=== PATIENT | male | born 1980 | race Caucasian/White ===

== ENCOUNTER 2018-03-29 22:59 | Emergency (ER) | payer MEDICAID ==
[~2018-03-29] VITALS: Ht 185.4 cm; Wt 95.3 kg
[2018-03-29 23:20] VITALS: BP 128/77
--- NOTE | 2018-03-29 23:38 | Emergency Room Report ---
History of Present Illness General Chief Complaint: Abdominal Pain Source: Patient Present Illness [facility] This is a 38-year-old male with a history of diverticulitis. He presents with left lower quadrant pain. Onset for last 3 days. Pain is 9 out of 10 patient sharp in nature. No nausea no vomiting. No diarrhea. Similar symptoms in the past. Subjective fever last night. Last radiculitis was 9 months ago. Denies any other complaint. Allergies: Coded Allergies: IBUPROFEN (Verified Allergy, Unknown, 03/29/18) IODINE (Verified Allergy, Unknown, 03/29/18) METOCLOPRAMIDE (Verified Allergy, Unknown, 03/29/18) PROCHLORPERAZINE (Verified Allergy, Unknown, 03/29/18) Patient History Past Medical History: see triage record, old chart reviewed Past Surgical History: other Pertinent Family History: none Social History: Denies: smoking Immunizations: other Reviewed Nursing Documentation: PMH: Agreed; PSxH: Agreed Nursing Documentation-PMH Past Medical History: No History, Except For Hx Gastrointestinal Problems: Yes - diverticulitis, kidney stones Review of Systems Eye: Denies: eye pain, blurred vision ENT: Denies: ear pain, nose congestion, throat swelling Respiratory: Reports: cough; Denies: shortness of breath Cardiovascular: Denies: chest pain, palpitations Gastrointestinal: Reports: abdominal pain; Denies: diarrhea, nausea, vomiting Musculoskeletal: Denies: back pain, joint pain Skin: Denies: rash Neurological: Denies: headache, numbness Endocrine: Denies: increased thirst, increased urine Hematologic/Lymphatic: Denies: easy bruising All Other Systems: negative except mentioned in HPI Physical Exam Vital Signs Date Time Temp Pulse Resp B/P (MAP) Pulse Ox O2 Delivery O2 Flow Rate FiO2 03/29/18 23:04 98.1 95 16 135/90 95 Room Air vitals unremarkable Sp02 EP Interpretation: reviewed, normal General Appearance: well appearing, no apparent distress, alert Head: normocephalic, atraumatic Eyes: bilateral eye PERRL, bilateral eye EOMI ENT: hearing grossly normal, normal pharynx Neck: full range of motion, supple, no meningismus Respiratory: chest non-tender, lungs clear, normal breath sounds Cardiovascular #1: regular rate, rhythm, no murmur Gastrointestinal: normal bowel sounds, no mass, no organomegaly, no bruit, non- distended, tenderness - Left lower quadrant Musculoskeletal: back normal, gait/station normal, normal range of motion Psychiatric: mood/affect normal Skin: warm/dry Medical Decision Making Diagnostic Impression: Primary Impression: Abdominal pain Qualified Codes: R10.32 - Left lower quadrant pain Additional Impression: Community acquired pneumonia Qualified Codes: J18.1 - Lobar pneumonia, unspecified organism ER Course This patient presents with left lower quadrant abdominal pain. Labs unremarkable. CT negative for inflammation or diverticulitis. He does have a cough the last [address] scan showed a possible right middle lobe infiltrate. We'll discharge home with antibiotics. No evidence of an acute abdomen. No evidence of any obstruction. Lab Results Impression labs unremarkable Last Vital Signs Date Time Temp Pulse Resp B/P (MAP) Pulse Ox O2 Delivery O2 Flow Rate FiO2 03/29/18 23:20 86 16 Room Air 03/29/18 23:20 98.1 128/77 98 Status: improved Disposition: HOME, SELF-CARE Condition: Stable Scripts Levofloxacin* (LEVAQUIN*) 500 Mg Tablet 500 MG ORAL DAILY, #7 TAB Prov: Elias Carlin MD 03/30/18 Hydrocodone/Acetaminophen 5-325* (HYDROCODONE/ACETAMINOPHEN 5-325*) 1 Each Tablet 1 TAB ORAL Q6H PRN for For Pain, #10 TAB 0 Refills Prov: Elias Carlin MD 03/30/18 Referrals: NOT CHOSEN [facility]/,REFERRING (PCP) Patient Instructions: Abdominal Pain, Adult Additional Instructions: Follow-up with your doctor in 7 days. Return if symptom worsen. Elias Carlin MD Mar 29, 2018 23:38
[2018-03-29] MEDS ORDERED: Morphine Sulfate 4mg/ml Inj (IV/IM USE ONLY) IVP ONE (23:45)
[2018-03-30 00:15] LABS: APPEARANCE,URINE CLEAR; BILIRUBIN, URINE NEGATIVE (NEGATIVE); COLOR,URINE PALE YELLOW; GLUCOSE, URINE (UA) NEGATIVE (NEGATIVE); KETONES,URINE NEGATIVE (NEGATIVE); LEUKOCYTE ESTERASE ,URINE NEGATIVE (NEGATIVE); NITRITE,URINE NEGATIVE (NEGATIVE); PH,URINE 7 (4.5-8.0); PROTEIN,URINE NEGATIVE (NEGATIVE); UROBILINOGEN,URINE NORMAL MG/DL (0.0-1.0)
[2018-03-30 00:19] LABS: ANION GAP 9 mmol/L (5-15); BLOOD UREA NITROGEN 20 mg/dL (7-18); CARBON DIOXIDE 26 MMOL/L (21-32); CHLORIDE 103 MMOL/L (98-107); CREATININE 1.3 MG/DL (0.55-1.30); POTASSIUM 4.1 MMOL/L (3.5-5.1); SODIUM 138 MMOL/L (136-145)
[2018-03-30 00:23] LABS: ALANINE AMINOTRANSFERASE 31 U/L (12-78); ALBUMIN 3.7 G/DL (3.4-5.0); ALBUMIN/GLOBULIN RATIO 0.8 (1.0-2.7); ALKALINE PHOSPHATASE 98 U/L (46-116); ASPARTATE AMINO TRANSFERASE 20 U/L (15-37); BASOPHILS % (AUTO) 0.9 % (0.0-2.0); BILIRUBIN,TOTAL 0.4 MG/DL (0.2-1.0); EOSINOPHILS % (AUTO) 4.2 % (0.0-3.0); HEMATOCRIT 43.7 % (42.0-52.0); HEMOGLOBIN 14.8 G/DL (14.2-18.0); LYMPHOCYTES % (AUTO) 22.9 % (20.0-45.0); MEAN CORPUSCULAR VOLUME 82 FL (80-99); MONOCYTES % (AUTO) 7.5 % (1.0-10.0); NEUTROPHILS % (AUTO) 64.5 % (45.0-75.0); PLATELET COUNT 225 K/UL (150-450); RED BLOOD COUNT 5.33 M/UL (4.70-6.10); RED CELL DISTRIBUTION WIDTH 11.3 % (11.6-14.8); WHITE BLOOD COUNT 8.2 K/UL (4.8-10.8)
[2018-03-30] MEDS ORDERED: Morphine Sulfate 4mg/ml Inj (IV/IM USE ONLY) IVP ONE (00:30)
[2018-03-30] MEDS ORDERED: LEVAQUIN500 MG ORAL (00:58)
[2018-03-30] MEDS ORDERED: HYDROCODON-ACE1 EA15 ORAL (00:58)
[2018-03-30 01:05] VITALS: BP 128/77
--- NOTE | 2018-03-30 10:53 | Diagnostic Imaging Report ---
Indication: Abdominal pain for 3 days Technique: Spiral acquisitions obtained through the abdomen and pelvis. No oral contrast utilized, per emergency room physician request No IV contrast utilized, per referring physician request.. Multiplanar reconstructions were generated. Total dose length product 633.78 mGycm. CTDIvol(s) 11.8 mGy. Dose reduction achieved using automated exposure control Comparison: None Findings: The appendix is normal no evidence of diverticulosis or diverticulitis. No small bowel distention. No free or loculated intraperitoneal gas or fluid. Distal esophagus, stomach, duodenum are unremarkable. Lack of IV contrast limits assessment of the solid organs. The liver, gallbladder, bile ducts, pancreas, spleen, adrenals, kidneys are unremarkable. No retroperitoneal or mesenteric mass or adenopathy. No pelvic mass or adenopathy. The prostate is prominent for age The included lung bases are clear except for minimal scarring or atelectasis in the right middle lobe. The bones are unremarkable Impression: Somewhat prominent prostate, for age. Minimal right middle lobe atelectasis Otherwise unremarkable This agrees with the preliminary interpretation provided overnight by [facility].. The CT scanner at [facility] is accredited by the [employer] and the scans are performed using protocols designed to limit radiation exposure to as low as reasonably achievable to attain images of sufficient resolution adequate for diagnostic evaluation.
[2018-03-30] MEDS ORDERED: NKM (14:24)
== END 2018-03-30 01:05 | disposition home or self-care (01) ==
LOC: EMR 23:32
DX: R10.32 Left lower quadrant pain (principal); J18.9 Pneumonia, unspecified organism; Z87.19 Personal history of other diseases of the digestive system; Z87.442 Personal history of urinary calculi; Z88.6 Allergy status to analgesic agent
CPT/HCPCS: 36415; 74176; 80053; 80307; 81003; 83690; 85025; 96374; 96375; 96376; 99284; J2270; J2405

== ENCOUNTER 2018-03-30 12:31 | Inpatient (IN) | payer MEDICAID ==
[~2018-03-30] VITALS: Ht 185.4 cm; Wt 99.5 kg
[~2018-03-30 12:31] MED LIST: HYDROCODON-ACE1 EA15 ORAL; LEVAQUIN500 MG ORAL
[2018-03-30 12:45] VITALS: BP 118/74
[2018-03-30] MEDS ORDERED: Morphine Sulfate 4mg/ml Inj (IV/IM USE ONLY) IVP ONE (13:15)
[2018-03-30] MEDS ORDERED: NKM (14:24)
[2018-03-30 14:33] LABS: BASOPHILS % (AUTO) 0.6 % (0.0-2.0); EOSINOPHILS % (AUTO) 3.4 % (0.0-3.0); HEMATOCRIT 40.6 % (42.0-52.0); HEMOGLOBIN 13.7 G/DL (14.2-18.0); LYMPHOCYTES % (AUTO) 15.1 % (20.0-45.0); MEAN CORPUSCULAR VOLUME 83 FL (80-99); MONOCYTES % (AUTO) 8.3 % (1.0-10.0); NEUTROPHILS % (AUTO) 72.6 % (45.0-75.0); PLATELET COUNT 210 K/UL (150-450); RED BLOOD COUNT 4.92 M/UL (4.70-6.10); RED CELL DISTRIBUTION WIDTH 11.4 % (11.6-14.8); WHITE BLOOD COUNT 9.3 K/UL (4.8-10.8)
--- NOTE | 2018-03-30 14:38 | Diagnostic Imaging Report ---
Indication: Chest pain Technique: One view of the chest Comparison: none Findings: The lungs and pleural spaces are clear. The left hilum is very prominent. The heart size is normal. Impression: No acute process Prominent left hilum, could be on the basis of prominent vasculature but mass or adenopathy possible. Further evaluation with chest CT should be considered Findings discussed with the emergency room nurse practitioner Becky Montgomery at the time of interpretation
[2018-03-30 14:52] LABS: ANION GAP 8 mmol/L (5-15); BLOOD UREA NITROGEN 19 mg/dL (7-18); CARBON DIOXIDE 25 MMOL/L (21-32); CHLORIDE 104 MMOL/L (98-107); CREATININE 1.1 MG/DL (0.55-1.30); POTASSIUM 3.8 MMOL/L (3.5-5.1); SODIUM 137 MMOL/L (136-145)
[2018-03-30 14:57] LABS: ALANINE AMINOTRANSFERASE 26 U/L (12-78); ALBUMIN 3.4 G/DL (3.4-5.0); ALBUMIN/GLOBULIN RATIO 0.8 (1.0-2.7); ALKALINE PHOSPHATASE 89 U/L (46-116); ASPARTATE AMINO TRANSFERASE 18 U/L (15-37); BILIRUBIN,TOTAL 0.3 MG/DL (0.2-1.0); CREATINE KINASE 130 U/L (26-308)
[2018-03-30] MEDS ORDERED: Morphine Sulfate 2mg/ml Inj IVP ONE (15:15)
[2018-03-30] MEDS ORDERED: LORazepam Inj 2mg/ml 1ml IV ONE (15:15)
[2018-03-30 15:30] VITALS: BP 115/68
--- NOTE | 2018-03-30 16:35 | Diagnostic Imaging Report ---
Clinical Indication: Chest pain, coughing, chills over one week, abnormal recent chest radiograph Technique: Spiral acquisitions obtained through the chest. No IV contrast utilized, reason not stated. Multiplanar reconstructions generated. Total dose length product 776.08 mGycm. CTDIvol(s) 17.67 mGy. Dose reduction achieved using automated exposure control Comparison: none Findings: Lack of IV contrast limits assessment. The lungs demonstrate no definite left hilar mass or adenopathy. Prominent vessels probably account for findings seen on recent chest radiograph. Ill-defined reticular and groundglass opacities in a patchy distribution are seen in the right middle lobe. Questionable 2 mm nodular opacity is seen in the inferior left upper lobe, image 47 of series 5. The left lung is otherwise clear. The right upper and lower lobes are clear. The pleural spaces are clear. No masses are demonstrated. Normal heart size. No pericardial effusion. No mediastinal or hilar mass or adenopathy. Included thyroid is unremarkable. No axillary or supraclavicular mass or adenopathy. Unremarkable esophagus. The included upper abdominal anatomy is unremarkable. Impression: Faint subtle reticular and groundglass opacities in a patchy distribution in the right lung. These are nonspecific. Could represent very early pneumonia, among other possibilities Questionable 2 mm nodular opacity in the inferior left upper lobe. No further follow-up necessary if there is no significant smoking history or other risk factors for lung carcinoma. Recommend 6-[address] if there are significant risk factors No definite left hilar abnormality to correspond to left hilar prominence described on recent chest radiograph; that finding most likely on the basis of prominent vasculature. Note, however, that evaluation is limited in the absence of IV contrast The CT scanner at [facility] is accredited by the [employer] and the scans are performed using protocols designed to limit radiation exposure to as low as reasonably achievable to attain images of sufficient resolution adequate for diagnostic evaluation.
[2018-03-30 18:16] VITALS: BP 110/70
--- NOTE | 2018-03-30 18:33 | Emergency Room Report ---
History of Present Illness General Chief Complaint: Flu Like Symptoms Source: Patient Present Illness HPI 38 Yo male presents to the ED c/o 10 out of 10 in severity chest pain, cough, body aches, fevers and chills times almost one week. Patient reports he was here in the emergency department last night diagnosed with pneumonia and prescribed antibiotics. Patient states that he was unable to obtain antibiotics and he is now feeling much worse. Patient also reports shakiness, feeling as though it is hard to catch his breath and pain taking deep breaths. Reports vomiting, he denies blood in the vomit or stool. Denies black tarry stools. He also reports nasal congestion he denies sore throat or ear pain. Patient reports sinus pressure headache as well denies neck pain or stiffness, or photophobia. Allergies: Coded Allergies: IBUPROFEN (Verified Allergy, Unknown, 03/29/18) IODINE (Verified Allergy, Unknown, 03/29/18) METOCLOPRAMIDE (Verified Allergy, Unknown, 03/29/18) PROCHLORPERAZINE (Verified Allergy, Unknown, 03/29/18) Patient History Past Medical History: see triage record Past Surgical History: none Pertinent Family History: none Reviewed Nursing Documentation: PMH: Agreed; PSxH: Agreed Nursing Documentation-PMH Past Medical History: No History, Except For Hx Gastrointestinal Problems: Yes - diverticulitis, kidney stones Review of Systems All Other Systems: negative except mentioned in HPI Physical Exam Vital Signs Date Time Temp Pulse Resp B/P (MAP) Pulse Ox O2 Delivery O2 Flow Rate FiO2 03/30/18 12:45 98.4 96 18 118/74 96 Room Air Sp02 EP Interpretation: reviewed, normal General Appearance: alert, GCS 15, moderate distress Head: normocephalic, atraumatic Eyes: bilateral eye normal inspection, bilateral eye PERRL, bilateral eye other - no photophobia ENT: hearing grossly normal, normal voice, uvula midline, moist mucus membranes , nasal congestion, pharyngeal erythema, other - no tonsillar swelling or exudates Neck: full range of motion, no meningismus, no bony tend Respiratory: chest non-tender, lungs clear, normal breath sounds, no respiratory distress, speaking full sentences, wheezing Cardiovascular #1: regular rate, rhythm Gastrointestinal: non tender, soft Musculoskeletal: back normal, gait/station normal, normal range of motion, non- tender Neurologic: alert, oriented x3, responsive, motor strength/tone normal, sensory intact, normal gait, speech normal, grossly normal Psychiatric: judgement/insight normal Skin: normal color, no rash, warm/dry, well hydrated Lymphatic: no adenopathy Medical Decision Making PA Attestation Dr. delarosa is my supervising Physician whom patient management has been discussed with. Diagnostic Impression: Primary Impression: Pneumonia Qualified Codes: J18.1 - Lobar pneumonia, unspecified organism ER Course 38 Yo male presents to the ED c/o 10 out of 10 in severity chest pain, cough, body aches, fevers and chills times almost one week. Patient reports he was here in the emergency department last night diagnosed with pneumonia and prescribed antibiotics. Patient states that he was unable to obtain antibiotics and he is now feeling much worse. Patient also reports shakiness, feeling as though it is hard to catch his breath and pain taking deep breaths. Reports vomiting, he denies blood in the vomit or stool. Denies black tarry stools. He also reports nasal congestion he denies sore throat or ear pain. Patient reports sinus pressure headache as well denies neck pain or stiffness, or photophobia. Pt. with previous hx of Smoking no currently a smoker Ddx considered but are not limited to NV, pneumonia, contusion, costochondritis , PE, ACS, Shoulder strain, Chest wall contusion. aortic dissection. Vital signs: are WNL, pt. is afebrile H&PE are most consistent with community acquired pna. -reviewed labs from yesterday: WNL. Also reviewd yesterday's CT abdomen / pelvis. ORDERS: - EK BPM NSR -CBC: WNL -CMP: WNL -Troponin: 0.00 INFLUENZA: negative CXR: prominent left hilum- looked abnormal on prelim ED read- CT chest ordered. -CT CHes ( NON CON- * iodine allergy ): ground glass appearance, INCIDENTAL 2mm NODULE ED INTERVENTIONS: - IV fluids 750 mg IV Levaquin -4mg morphine IV x 2 He was reporting significant anxiety- 1mg Ativan IV PT. continues to not feel well and have moderate body aches requesting multiple rounds of strong IV pain medications, and multiple re-evaluations. Since patient is a bounce back from last night I feel that because he is still symptomatic and reports not feeling well enough for d/c home, I feel that he would benefit most from admission to reduce risk of need for return or any adverse outcomes. DISPOSITION: at this time pt. will be admitted to Dr. Jansen for Pneumonia. Dr. Jansen agreed to admit the pt. and to continue pt. care management. Labs Test 03/30/18 14:00 White Blood Count 9.3 K/UL (4.8-10.8) Red Blood Count 4.92 M/UL (4.70-6.10) Hemoglobin 13.7 G/DL (14.2-18.0) Hematocrit 40.6 % (42.0-52.0) Mean Corpuscular Volume 83 FL (80-99) Mean Corpuscular Hemoglobin 27.9 PG (27.0-31.0) Mean Corpuscular Hemoglobin Concent 33.8 G/DL (32.0-36.0) Red Cell Distribution Width 11.4 % (11.6-14.8) Platelet Count 210 K/UL (150-450) Mean Platelet Volume 6.2 FL (6.5-10.1) Neutrophils (%) (Auto) 72.6 % (45.0-75.0) Lymphocytes (%) (Auto) 15.1 % (20.0-45.0) Monocytes (%) (Auto) 8.3 % (1.0-10.0) Eosinophils (%) (Auto) 3.4 % (0.0-3.0) Basophils (%) (Auto) 0.6 % (0.0-2.0) Sodium Level 137 MMOL/L (136-145) Potassium Level 3.8 MMOL/L (3.5-5.1) Chloride Level 104 MMOL/L (98-107) Carbon Dioxide Level 25 MMOL/L (21-32) Anion Gap 8 mmol/L (5-15) Blood Urea Nitrogen 19 mg/dL (7-18) Creatinine 1.1 MG/DL (0.55-1.30) Estimat Glomerular Filtration Rate > 60 mL/min (>60) Glucose Level 100 MG/DL (74-106) Lactic Acid Level 0.60 mmol/L (0.4-2.0) Calcium Level 9.0 MG/DL (8.5-10.1) Total Bilirubin 0.3 MG/DL (0.2-1.0) Aspartate Amino Transf (AST/SGOT) 18 U/L (15-37) Alanine Aminotransferase (ALT/SGPT) 26 U/L (12-78) Alkaline Phosphatase 89 U/L (46-116) Total Creatine Kinase 130 U/L (26-308) Troponin I 0.000 ng/mL (0.000-0.056) Total Protein 7.5 G/DL (6.4-8.2) Albumin 3.4 G/DL (3.4-5.0) Globulin 4.1 g/dL Albumin/Globulin Ratio 0.8 (1.0-2.7) EKG Diagnostic Results EP Interpretation: Dr. Delatorre Rate: normal - 76 bpm Rhythm: NSR ST Segments: no acute changes ASA given to the pt in ED: No PA Scribe Text This Interpretation was scribed by SANDRA Montgomery. Chest X-Ray Diagnostic Results Chest X-Ray Diagnostic Results : Chest X-Ray Ordered: Yes # of Views/Limited/Complete: 1 View Indication: Chest Pain EP Interpretation: Yes PA Xray: Interpretation reviewed, by supervising MD, and agrees with findings. Interpretation: no consolidation, no effusion, no pneumothorax, no acute cardiopulmonary disease Impression: No acute disease Electronically Signed by: Becky Montgomery PA-C CT/MRI/US Diagnostic Results CT/MRI/US Diagnostic Results : Imaging Test Ordered: CT Chest non-contrasted Impression "Impression: Faint subtle reticular and groundglass opacities in a patchy distribution in the right lung. These are nonspecific. Could represent very early pneumonia, among other possibilities Questionable 2 mm nodular opacity in the inferior left upper lobe. No further follow-up necessary if there is no significant smoking history or other risk factors for lung carcinoma. Recommend 6-[address] if there are significant risk factors No definite left hilar abnormality to correspond to left hilar prominence described on recent chest radiograph; that finding most likely on the basis of prominent vasculature. Note, however, that evaluation is limited in the absence of IV contrast" ----Per official radiology report- Please see report for specific details. Last Vital Signs Date Time Temp Pulse Resp B/P (MAP) Pulse Ox O2 Delivery O2 Flow Rate FiO2 03/30/18 18:16 98.7 80 16 110/70 98 Room Air Disposition: ADMITTED INPATIENT Condition: Serious Referrals: NOT CHOSEN [facility]/,REFERRING (PCP) Becky Montgomery Mar 30, 2018 18:33
[2018-03-30 18:50] VITALS: BP 108/73
[2018-03-30 20:00] VITALS: BP 111/76
[2018-03-30] MEDS: Morphine Sulfate 2mg/ml Inj IVP PRN (20:08)
[2018-03-30] MEDS: Heparin 5000 units/ml inj SUBQ SCH (21:00)
[2018-03-30] MEDS: LORazepam Inj 2mg/ml 1ml IV PRN (21:14)
[2018-03-31] VITALS: BP 117/68
[2018-03-31] MEDS: Morphine Sulfate 2mg/ml Inj IVP PRN ×6 (00:11→21:55)
[2018-03-31] MEDS: LORazepam Inj 2mg/ml 1ml IV PRN ×4 (03:04→23:31)
[2018-03-31 04:00] VITALS: BP 115/79
[2018-03-31 08:00] VITALS: BP 114/70
[2018-03-31] MEDS: Heparin 5000 units/ml inj SUBQ SCH ×2 (08:21→21:00)
--- NOTE | 2018-03-31 08:28 | History and Physical ---
History of Present Illness General Date patient seen: Mar 31, 2018 Time patient seen: 08:19 Reason for Hospitalization: Flu Like Symptoms Present Illness HPI 38 yo male with no sig pmh, who presents with complaints of cp,sob, coughs with fevers/chills for the past 7 days. Patient states his coughing has become worse , states he has yellow productive sputum. Patient states he was recently here in the emergency department the night before and diagnosed with pneumonia and prescribed antibiotics. Patient states that he was unable to obtain antibiotics and he is now feeling much worse. Patient also reports shakiness, feeling as though it is hard to catch his breath and pain taking deep breaths. Reports vomiting, he denies blood in the vomit or stool. Denies black tarry stools. He also reports nasal congestion he denies sore throat or ear pain. Patient reports sinus pressure headache as well denies neck pain or stiffness, or photophobia. Social hx reviewed: patient denies alcohol use, admits to smoking less than half ppd on average, denies any drug use fam hx reviewed: denies any sig past fam hx that he is aware of code status reviewed: full code Allergies: Coded Allergies: IBUPROFEN (Verified Allergy, Unknown, 03/29/18) IODINE (Verified Allergy, Unknown, 03/29/18) METOCLOPRAMIDE (Verified Allergy, Unknown, 03/29/18) PROCHLORPERAZINE (Verified Allergy, Unknown, 03/29/18) Medication History Scheduled Levofloxacin* (Levaquin*), 500 MG ORAL DAILY No Known Medications* (NKM - No Known Medications*), 0 ., (Reported) Scheduled PRN Hydrocodone/Acetaminophen 5-325* (Hydrocodone/Acetaminophen 5-325*), 1 TAB ORAL Q6H PRN for For Pain Patient History Healthcare decision maker Resuscitation status Full Code Advanced Directive on File No Review of Systems All Other Systems: negative except mentioned in HPI ROS Narrative 14 point ROS reviewed and negative except per the above HPI Physical Exam General Appearance: no apparent distress, alert Lines, tubes and drains: peripheral HEENT: normocephalic, atraumatic, anicteric, mucous membranes moist Neck: non-tender, normal alignment, supple, normal inspection Respiratory/Chest: chest wall non-tender, no respiratory distress, no accessory muscle use, other - mild exp wheezing appreciated Cardiovascular/Chest: normal peripheral pulses, normal rate, regular rhythm Abdomen: normal bowel sounds, non tender, soft, no organomegaly, no mass Extremities: normal range of motion, non-tender, normal inspection, no calf tenderness Skin Exam: normal pigmentation, warm/dry 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, no motor/sensory deficits, alert, oriented x 3, responsive, normal mood/affect Last 24 Hour Vital Signs Date Time Temp Pulse Resp B/P (MAP) Pulse Ox O2 Delivery O2 Flow Rate FiO2 03/31/18 04:00 97.7 69 19 115/79 (91) 100 03/31/18 00:00 98.0 79 18 117/68 (84) 100 03/30/18 21:00 Room Air 03/30/18 20:00 99.1 77 19 111/76 (88) 97 03/30/18 18:50 98.0 84 20 108/73 (85) 97 03/30/18 18:49 Room Air 03/30/18 18:49 Room Air 03/30/18 18:47 98.7 78 16 110/70 98 Room Air 80 03/30/18 18:16 98.7 80 16 110/70 98 Room Air 03/30/18 15:30 98.6 78 18 115/68 97 Room Air 03/30/18 14:04 98.4 03/30/18 14:04 98.4 03/30/18 14:04 98.4 03/30/18 14:00 96 18 Room Air 03/30/18 12:45 98.4 18 118/74 96 Room Air 03/30/18 12:45 98.4 96 18 118/74 96 Room Air Intake and Output 03/30/18 03/31/18 19:00 07:00 Intake Total 1100 ml 1350 ml Balance 1100 ml 1350 ml Intake Oral 100 ml IV Total 1100 ml 1250 ml # Voids 2 2 Laboratory Tests Test 03/30/18 14:00 White Blood Count 9.3 K/UL (4.8-10.8) Red Blood Count 4.92 M/UL (4.70-6.10) Hemoglobin 13.7 G/DL (14.2-18.0) L Hematocrit 40.6 % (42.0-52.0) L Mean Corpuscular Volume 83 FL (80-99) Mean Corpuscular Hemoglobin 27.9 PG (27.0-31.0) Mean Corpuscular Hemoglobin Concent 33.8 G/DL (32.0-36.0) Red Cell Distribution Width 11.4 % (11.6-14.8) L Platelet Count 210 K/UL (150-450) Mean Platelet Volume 6.2 FL (6.5-10.1) L Neutrophils (%) (Auto) 72.6 % (45.0-75.0) Lymphocytes (%) (Auto) 15.1 % (20.0-45.0) L Monocytes (%) (Auto) 8.3 % (1.0-10.0) Eosinophils (%) (Auto) 3.4 % (0.0-3.0) H Basophils (%) (Auto) 0.6 % (0.0-2.0) Sodium Level 137 MMOL/L (136-145) Potassium Level 3.8 MMOL/L (3.5-5.1) Chloride Level 104 MMOL/L (98-107) Carbon Dioxide Level 25 MMOL/L (21-32) Anion Gap 8 mmol/L (5-15) Blood Urea Nitrogen 19 mg/dL (7-18) H Creatinine 1.1 MG/DL (0.55-1.30) Estimat Glomerular Filtration Rate > 60 mL/min (>60) Glucose Level 100 MG/DL (74-106) Lactic Acid Level 0.60 mmol/L (0.4-2.0) Calcium Level 9.0 MG/DL (8.5-10.1) Total Bilirubin 0.3 MG/DL (0.2-1.0) Aspartate Amino Transf (AST/SGOT) 18 U/L (15-37) Alanine Aminotransferase (ALT/SGPT) 26 U/L (12-78) Alkaline Phosphatase 89 U/L (46-116) Total Creatine Kinase 130 U/L (26-308) Troponin I 0.000 ng/mL (0.000-0.056) Total Protein 7.5 G/DL (6.4-8.2) Albumin 3.4 G/DL (3.4-5.0) Globulin 4.1 g/dL Albumin/Globulin Ratio 0.8 (1.0-2.7) L Microbiology Date/Time Source Procedure Growth Status 03/30/18 18:10 Nasal Nares Influenza Types A,B Antigen (FERCHO) - Final Complete Height (Feet): 6 Height (Inches): 1.00 Weight (Pounds): 220 Medications Current Medications Medications (Trade) Dose Ordered Sig/Vern Route PRN Reason Start Time Stop Time Status Last Admin Dose Admin Heparin Sodium (Porcine) (Heparin 5000 units/ml) 5,000 units EVERY 12 HOURS SUBQ 03/30/18 21:00 04/29/18 20:59 Levofloxacin 150 ml @ 100 mls/hr Q24H IVPB 03/31/18 13:00 04/07/18 12:59 Lorazepam (Ativan 2mg/ml 1ml) 1 mg Q6H PRN IV For Anxiety 03/30/18 20:30 04/06/18 20:29 03/31/18 03:04 Morphine Sulfate (Morphine Sulfate) 2 mg Q4H PRN IVP For Pain 03/30/18 19:15 04/06/18 19:14 03/31/18 08:15 Sodium Chloride 1,000 ml @ 125 mls/hr Q8H IV 03/30/18 19:15 04/29/18 19:14 03/31/18 03:04 Assessment/Plan Status: stable Assessment/Plan #Community Acquired Pneumonia #Chest Pain #Costochondritis #Shortness of breath trop x 1 neg cp due to costochondritis pain control patient with CAP, cxr reviewed, right lower lobe ground glass opacifications noted levofloxacin started Duonebs IVF prn antiemetics #Smoker smokes less than half ppd on average educated on smoking cessation for over 15 mins diet: regular DVT Prophylaxis: SCD, HSQ Code Status: Full Hospital Classification Declaration: Based on this initial evaluation, and depending on the patient's clinical course, I anticipate that this patient will require hospitalization for 2-3 days for CAP tx and close respiratory/ hemodynamic monitoring. Disposition: Once the patient is stable to leave the hospital, I anticipate the patient will likely be discharged to the following environment: home with HH vs SNF I spent 71 minutes on this patient's case, and 40 minutes were dedicated to counseling and/or care coordination. Discussed with patient/family, nursing staff, SW/CM regarding clinical status, treatment course, and disposition planning. Time of note may not reflect time of encounter. --- Date of Discussion: 03/31/18 A [id number] discussion with the patient regarding the patient's advanced care planning took place during this hospitalization on the above date. The discussion included the explanation and discussion of advance directives and associated forms/documents, as well as the patient's current code status. We also discussed at length the patient's medical conditions (both acute and chronic), general prognosis, treatment options, and goals of care. The following summarizes the discussion: Advance Care Planning/Goals of Care: - Will attempt to fill out an AD and/or POLST with the patient prior to discharge, if not already completed - Continue current evaluation and management of any acute and chronic medical issues - Will continue to support the patient/family - Will continue to discuss both short- and long-term goals of care DPOA-HC/Surrogate Decision Maker: None currently appointed Code Status: Full Code AD Forms/Documents Completed: Deferred A total of 31 minutes was spent on this discussion, including counseling, answering questions, and completing, if any, pertinent advanced care planning forms/documents. Shaneka Madison MD Mar 31, 2018 08:28
[2018-03-31] MEDS ORDERED: Albuterol/Ipratropium 3ml neb HHN PRN (08:30)
[2018-03-31 12:00] VITALS: BP 99/75
--- NOTE | 2018-03-31 12:23 | Cardiology Report ---
APPROVED REPORT EKG Measurement Heart [id number] Normal sinus rhythm Normal ECG
[2018-03-31 16:00] VITALS: BP 117/73
[2018-03-31 20:00] VITALS: BP 106/57
[2018-04-01] VITALS: BP 113/67
[2018-04-01] MEDS: Morphine Sulfate 2mg/ml Inj IVP PRN ×5 (02:29→19:23)
[2018-04-01 04:00] VITALS: BP 126/76
[2018-04-01] MEDS: LORazepam Inj 2mg/ml 1ml IV PRN ×3 (05:54→19:44)
--- NOTE | 2018-04-01 07:59 | General Progress Note ---
Assessment/Plan Assessment/Plan #Community Acquired Pneumonia #Chest Pain #Costochondritis #Shortness of breath trop remain neg cp due to costochondritis pain control patient with CAP, cxr reviewed, right lower lobe ground glass opacifications noted levofloxacin started Duonebs IVF prn antiemetics #COPD exacerbation - duonebs - abx - prednisone #Smoker smokes less than half ppd on average educated on smoking cessation for over 15 mins diet: regular DVT Prophylaxis: SCD, HSQ Code Status: Full Hospital Classification Declaration: Based on this initial evaluation, and depending on the patient's clinical course, I anticipate that this patient will require hospitalization for 2-3 days for CAP tx and close respiratory/ hemodynamic monitoring. Disposition: Once the patient is stable to leave the hospital, I anticipate the patient will likely be discharged to the following environment: home with HH vs SNF I spent 65 minutes on this patient's case, and 40 minutes were dedicated to counseling and/or care coordination. Discussed with patient/family, nursing staff, SW/CM regarding clinical status, treatment course, and disposition planning. Time of note may not reflect time of encounter. Subjective Date patient seen: Apr 01, 2018 Time patient seen: 07:55 Allergies: Coded Allergies: IBUPROFEN (Verified Allergy, Unknown, 03/29/18) IODINE (Verified Allergy, Unknown, 03/29/18) METOCLOPRAMIDE (Verified Allergy, Unknown, 03/29/18) PROCHLORPERAZINE (Verified Allergy, Unknown, 03/29/18) Subjective f/u CAP, chest pain, copd exacerbation cp resolved patient still having sob and coughing states he is wheezing as well no sputum production denies fevers or chills no acute events overnight ROS: 14 point ROS reviewed and negative except per the above Objective Last 24 Hour Vital Signs Date Time Temp Pulse Resp B/P (MAP) Pulse Ox O2 Delivery O2 Flow Rate FiO2 04/01/18 04:00 98.2 69 20 126/76 (93) 97 04/01/18 02:57 98.6 04/01/18 00:00 98.6 69 21 113/67 (82) 98 03/31/18 21:51 69 20 Room Air 21 03/31/18 21:00 Room Air 03/31/18 20:00 98.9 75 19 106/57 (73) 96 03/31/18 16:00 98.0 78 19 117/73 (88) 99 12/25/18 12:00 97.8 82 20 99/75 (83) 99 03/31/18 09:00 Room Air 03/31/18 08:00 97.8 86 19 114/70 (85) 99 Intake and Output 03/31/18 04/01/18 19:00 07:00 Intake Total 1625 ml 520 ml Balance 1625 ml 520 ml Intake Oral 1500 ml 520 ml IV Total 125 ml # Voids 2 Height (Feet): 6 Height (Inches): 1.00 Weight (Pounds): 219 Objective General Appearance: no apparent distress, alert Lines, tubes and drains: peripheral HEENT: normocephalic, atraumatic, anicteric, mucous membranes moist Neck: non-tender, normal alignment, supple, normal inspection Respiratory/Chest: chest wall non-tender, no respiratory distress, no accessory muscle use, other - mild exp wheezing appreciated Cardiovascular/Chest: normal peripheral pulses, normal rate, regular rhythm Abdomen: normal bowel sounds, non tender, soft, no organomegaly, no mass Extremities: normal range of motion, non-tender, normal inspection, no calf tenderness Skin Exam: normal pigmentation, warm/dry 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
[2018-04-01 08:00] VITALS: BP 102/66
[2018-04-01] MEDS: Albuterol/Ipratropium 3ml neb HHN SCH ×3 (08:30→20:22)
[2018-04-01] MEDS: Heparin 5000 units/ml inj SUBQ SCH ×2 (09:00→21:00)
[2018-04-01 10:37] LABS: BASOPHILS % (AUTO) 0.9 % (0.0-2.0); EOSINOPHILS % (AUTO) 4.6 % (0.0-3.0); HEMATOCRIT 40.7 % (42.0-52.0); HEMOGLOBIN 13.9 G/DL (14.2-18.0); LYMPHOCYTES % (AUTO) 22.9 % (20.0-45.0); MEAN CORPUSCULAR VOLUME 82 FL (80-99); NEUTROPHILS % (AUTO) 63.6 % (45.0-75.0); PLATELET COUNT 219 K/UL (150-450); RED BLOOD COUNT 4.93 M/UL (4.70-6.10); RED CELL DISTRIBUTION WIDTH 11.5 % (11.6-14.8); WHITE BLOOD COUNT 6.4 K/UL (4.8-10.8)
[2018-04-01 10:53] LABS: ANION GAP 9 mmol/L (5-15); BLOOD UREA NITROGEN 11 mg/dL (7-18); CARBON DIOXIDE 27 MMOL/L (21-32); CHLORIDE 105 MMOL/L (98-107); POTASSIUM 4.1 MMOL/L (3.5-5.1); SODIUM 140 MMOL/L (136-145)
[2018-04-01 12:00] VITALS: BP 117/71
[2018-04-01 16:00] VITALS: BP 98/78
[2018-04-01 20:00] VITALS: BP 128/72
[2018-04-02] VITALS: BP 135/78
[2018-04-02] MEDS: Morphine Sulfate 2mg/ml Inj IVP PRN ×3 (00:10→09:50)
[2018-04-02] MEDS: Albuterol/Ipratropium 3ml neb HHN SCH ×2 (01:00→08:06)
[2018-04-02] MEDS: LORazepam Inj 2mg/ml 1ml IV PRN ×2 (01:56→08:07)
[2018-04-02 04:00] VITALS: BP 122/73
[2018-04-02 07:13] LABS: BASOPHILS % (AUTO) 0.6 % (0.0-2.0); EOSINOPHILS % (AUTO) 1.5 % (0.0-3.0); HEMATOCRIT 40.5 % (42.0-52.0); HEMOGLOBIN 13.9 G/DL (14.2-18.0); LYMPHOCYTES % (AUTO) 21.5 % (20.0-45.0); MEAN CORPUSCULAR VOLUME 83 FL (80-99); MONOCYTES % (AUTO) 6.3 % (1.0-10.0); NEUTROPHILS % (AUTO) 70.1 % (45.0-75.0); PLATELET COUNT 238 K/UL (150-450); RED CELL DISTRIBUTION WIDTH 11.7 % (11.6-14.8); WHITE BLOOD COUNT 9.2 K/UL (4.8-10.8)
[2018-04-02 07:37] LABS: ANION GAP 12 mmol/L (5-15); BLOOD UREA NITROGEN 15 mg/dL (7-18); CALCIUM 9.3 MG/DL (8.5-10.1); CARBON DIOXIDE 22 MMOL/L (21-32); CHLORIDE 105 MMOL/L (98-107); POTASSIUM 3.8 MMOL/L (3.5-5.1); SODIUM 139 MMOL/L (136-145)
[2018-04-02 08:00] VITALS: BP 122/73
[2018-04-02] MEDS: Heparin 5000 units/ml inj SUBQ SCH (09:00)
[2018-04-02] MEDS ORDERED: PROAIR HFA8.5 GM INH (09:27)
[2018-04-02] MEDS ORDERED: LEVOFLOXACIN750 MG ORAL (09:27)
[2018-04-02] MEDS ORDERED: PREDNISONE20 MG ORAL (09:27)
--- NOTE | 2018-04-02 09:32 | Discharge Summary ---
Discharge Summary Hospital Course Date of Admission Mar 30, 2018 at 17:39 Date of Discharge 04/02/18 Admitting Diagnosis Pneumonia HPI Mahin Kilpatrick is a 38 year old male who was admitted on Mar 30, 2018 at 17:39 for Pneumonia 38 yo male with no sig pmh, who presents with complaints of cp,sob, coughs with fevers/chills for the past 7 days. Patient states his coughing has become worse , states he has yellow productive sputum. Patient states he was recently here in the emergency department the night before and diagnosed with pneumonia and prescribed antibiotics. Patient states that he was unable to obtain antibiotics and he is now feeling much worse. Patient also reports shakiness, feeling as though it is hard to catch his breath and pain taking deep breaths. Reports vomiting, he denies blood in the vomit or stool. Denies black tarry stools. He also reports nasal congestion he denies sore throat or ear pain. Patient reports sinus pressure headache as well denies neck pain or stiffness, or photophobia. patient with CAP, cxr reviewed, right lower lobe ground glass opacifications noted, started on levofloxacin, duonebs and steroids as patient mentioned hx of smoking, concerns for copd. 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, no motor/sensory deficits, alert, oriented x 3, responsive, normal mood/affect Hospital Course #Community Acquired Pneumonia #Chest Pain #Costochondritis #Shortness of breath trop remain neg cp due to costochondritis pain control patient with CAP, cxr reviewed, right lower lobe ground glass opacifications noted levofloxacin Duonebs IVF improved #COPD exacerbation - duonebs - abx - prednisone - resolved #Smoker smokes less than half ppd on average educated on smoking cessation for over 15 mins diet: regular DVT Prophylaxis: SCD, HSQ Code Status: Full I have reviewed all imaging, labs and medications Disposition: Once the patient is stable to leave the hospital, I anticipate the patient will likely be discharged to the following environment: home I spent 45 minutes on this patient's case, discharge/dispo, counseling and/or care coordination. Discussed with patient/family, nursing staff, SW/CM regarding clinical status, treatment course, and disposition planning. Time of note may not reflect time of encounter. Discharge Medications New Medications: Albuterol Sulfate* (Proair Hfa*) 8.5 Gm Hfa.aer.ad 2 PUFFS INH Q6H PRN for 30 Days, #8.5 GM 0 Refills Levofloxacin* (Levofloxacin*) 750 Mg Tablet 750 MG ORAL DAILY for 5 Days, #5 TAB Prednisone* (Prednisone*) 20 Mg Tablet 40 MG ORAL DAILY for 3 Days, #3 TAB Discontinued Medications: Hydrocodone/Acetaminophen 5-325* (Hydrocodone/Acetaminophen 5-325*) 1 Each Tablet 1 TAB ORAL Q6H PRN for For Pain, #10 TAB 0 Refills Levofloxacin* (Levaquin*) 500 Mg Tablet 500 MG ORAL DAILY, #7 TAB No Known Medications* (NKM - No Known Medications*) . 0 ., 0 Refills Discharge Condition Upon Discharge: improving, stable Discharge Disposition Patient was discharged to home Discharge Diagnoses: (1) Community acquired bacterial pneumonia (2) COPD exacerbation (3) Smoker (4) Chest pain (5) Costochondritis, acute Shaneka Madison MD Apr 02, 2018 09:32
== END 2018-04-02 12:07 | disposition home or self-care (01) | DRG 140 ==
LOC: EMR 13:59 → 3E 17:39 → EDBEDREQ 18:10
DX: J44.0 Chronic obstructive pulmonary disease with (acute) lower respiratory infection (principal); J18.9 Pneumonia, unspecified organism; J44.1 Chronic obstructive pulmonary disease with (acute) exacerbation; M94.0 Chondrocostal junction syndrome [Tietze]; F17.200 Nicotine dependence, unspecified, uncomplicated; Z88.6 Allergy status to analgesic agent; Z88.8 Allergy status to other drugs, medicaments and biological substances
CPT/HCPCS: 36415; 71045; 71250; 80048; 80053; 82550; 83605; 84484; 85025; 86710; 87040; 93005; 94640; 94664; 96361; 96365; 96375; 96376; 99285; J2405; J7620